=== PATIENT | male | born 1970 | race American Indian/Alaskan Native ===

== ENCOUNTER 2016-06-15 11:07 | Emergency (ER) | payer MEDICAID ==
--- NOTE | 2016-06-15 13:03 | Emergency Department Report ---
ED Dysuria HPI - HPI Chief Complaint: Urogenital-Male Stated Complaint: PAINFUL URINATION Time Seen by Provider: 06/15/16 12:58 Duration: 5 Days Location of Discomfort: Urethra (dysuria) Severity: Mild Symptoms: Dysuria: Yes, Frequency: Yes, Suprapubic Pain: No, Flank Pain: No, Fever: No, Hematuria: No, Abdominal Pain: No, Previous UTI's: No Other History: Pt reports dysuria, frequency, hesitancy x 5 days. No fevers or vomiting. No abdominal pain. ED Review of Systems ROS: Stated complaint: PAINFUL URINATION Other details as noted in HPI Comment: All other systems reviewed and negative Constitutional: denies: chills, fever Eyes: denies: eye pain, eye discharge, vision change ENT: denies: ear pain, throat pain Respiratory: denies: cough, shortness of breath, wheezing Cardiovascular: denies: chest pain, palpitations Endocrine: no symptoms reported Gastrointestinal: denies: abdominal pain, nausea, diarrhea Genitourinary: dysuria. denies: urgency, testicular pain Musculoskeletal: denies: back pain, joint swelling, arthralgia Skin: denies: rash, lesions Neurological: denies: headache, weakness, paresthesias Psychiatric: denies: anxiety, depression Hematological/Lymphatic: denies: easy bleeding, easy bruising ED Past Medical Hx - Past Medical History Hx Hypertension: Yes - Surgical History Past Surgical History?: No - Social History Smoking Status: Current Every Day Smoker Substance Use Type: Marijuana - Medications Home Medications: Home Medications Medication Instructions Recorded Confirmed Last Taken Type Ciprofloxacin HCl [Ciprofloxacin 500 mg PO Q12HR #56 tablet 06/15/16 Unknown Rx TAB] Tamsulosin [Flomax] 0.4 mg PO QDAY #30 cap 06/15/16 Unknown Rx Dysuria Exam - Exam General: Vital signs noted. No distress. Alert and acting appropriately. Exam: Yes Moist Mucous Membranes, No CVA Tenderness, No Abdominal Tenderness, No Rigidity or Guarding Exam: heart RRR, lungs CTAB, abd SNTND. Tender, enlarged prostate on exam. ED Course Vital Signs 06/15/16 11:22 Temperature 97.9 F Pulse Rate 72 Respiratory 16 Rate Blood Pressure 145/98 O2 Sat by Pulse 100 Oximetry - Reevaluation(s) Reevaluation #1: 06/15/16 17:16 NAD, stable for d/c. ED Medical Decision Making - Medical Decision Making UA clear, prostate enlarged and tender. Will treat for prostatitis and have him follow up. - Differential Diagnosis uti, sti, prostatitis Critical care attestation.: If time is entered above; I have spent that time in minutes in the direct care of this critically ill patient, excluding procedure time. ED Disposition Clinical Impression: Prostatitis, acute Disposition: DISCHARGED TO HOME OR SELFCARE Is pt being admited?: No Condition: Good Instructions: Prostatitis (ED) Prescriptions: Ciprofloxacin HCl [Ciprofloxacin TAB] 500 mg PO Q12HR #56 tablet Tamsulosin [Flomax] 0.4 mg PO QDAY #30 cap Referrals: CHRISSY MARTINEZ MD [Staff Physician] - 3-5 Days Time of Disposition: 17:18
[2016-06-15 15:55] VITALS: BP 140/88
[2016-06-15 16:56] LABS: Bilirubin,Urine NEG (Negative); Blood,Urine NEG (Negative); Ketones,Urine NEG (Negative); Leukocyte Esterase,Urine NEG (Negative); Mucus,Urine FEW /HPF; Nitrite,Urine NEG (Negative); Protein,Urine <15 mg/dL mg/dL (Negative)
== END 2016-06-15 17:26 | disposition home or self-care (01) ==
LOC: ED 11:07
DX: N41.0 Acute prostatitis (principal); I10 Essential (primary) hypertension; F17.200 Nicotine dependence, unspecified, uncomplicated; F12.90 Cannabis use, unspecified, uncomplicated
CPT/HCPCS: 81001; 82962; 87591; 99283

== ENCOUNTER 2018-07-08 05:59 | Emergency (ER) | payer MEDICAID ==
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
[2018-07-08 10:52] VITALS: BP 116/76
== END 2018-07-08 10:51 | disposition home or self-care (01) ==
LOC: ED 05:59
DX: H11.32 Conjunctival hemorrhage, left eye (principal); I10 Essential (primary) hypertension
CPT/HCPCS: 93005; 93010; 99282

== ENCOUNTER 2020-06-23 17:32 | Emergency (ER) | payer MEDICAID ==
--- NOTE | 2020-06-23 17:48 | Emergency Department Report ---
Blank Doc - Documentation Documentation: This is a 49-year-old male that is a poor historian presents with hearing voices and stating "I just do not feel good" and "my brain is going crazy". Patient otherwise denies any other complaints or symptoms. Denies any head trauma or injuries. Denies any suicidal homicidal ideation. 1- This initial assessment/diagnostic orders/clinical plan/ treatment(s) is/are subject to change based on pt's health status, clinical progression and re- assessment by fellow clinical providers in the ED. Further treatment and workup at subsequent clinical provers discretion. Patient/guardians urged not to elope from ED as their condition may be serious if not clinically assessed and m anaged. 2-labs 3-UA
[2020-06-23 18:29] LABS: Basophils % (Auto) 1.1 % (0.0-1.8); Eosinophils % (Auto) 1.1 % (0.0-4.3); Hematocrit 44.3 % (35.5-45.6); Hemoglobin 14.9 gm/dl (11.8-15.2); Lymphocytes # (Auto) 1.4 K/mm3 (1.2-5.4); Mean Corpuscular HGB Conc 34 % (32-34); Mean Corpuscular Volume 89 fl (84-94); Monocytes # (Auto) 0.3 K/mm3 (0.0-0.8); Monocytes % (Auto) 6.7 % (0.0-7.3); Platelet Count 124 K/mm3 (140-440); Red Cell Distribution Width 13.2 % (13.2-15.2)
[2020-06-23 18:33] LABS: Alanine Aminotransferase 23 units/L (7-56); BUN/Creatinine Ratio 7; Blood Urea Nitrogen 6 mg/dL (9-20); Calcium 8.4 mg/dL (8.4-10.2); Hemolysis Index 13
--- NOTE | 2020-06-23 18:41 | Emergency Department Report ---
<LUZ SRINIVASAN - Last Filed: 06/23/20 20:41> ED Psych HPI - General Chief Complaint: Psych Stated Complaint: DONT FEEL GOOD Time Seen by Provider: 06/23/20 17:46 - Related Data Previous Rx's Medication Instructions Recorded Last Taken Type Ciprofloxacin HCl [Ciprofloxacin 500 mg PO Q12HR #56 tablet 06/15/16 Unknown Rx TAB] Tamsulosin [Flomax] 0.4 mg PO QDAY #30 cap 06/15/16 Unknown Rx HYDROcodone/ACETAMINOPHEN [[place] 1 each PO Q6HR PRN #12 tablet 02/08/18 Unknown Rx 5-325 Tablet] Ibuprofen [Motrin] 800 mg PO Q8HR PRN #30 tablet 02/08/18 Unknown Rx Allergies Allergy/AdvReac Type Severity Reaction Status Date / Time No Known Allergies Allergy Unverified 06/15/16 11:27 ED Past Medical Hx - Medications Home Medications: Home Medications Medication Instructions Recorded Confirmed Last Taken Type Ciprofloxacin HCl [Ciprofloxacin 500 mg PO Q12HR #56 tablet 06/15/16 Unknown Rx TAB] Tamsulosin [Flomax] 0.4 mg PO QDAY #30 cap 06/15/16 Unknown Rx HYDROcodone/ACETAMINOPHEN [[place] 1 each PO Q6HR PRN #12 tablet 02/08/18 Unknown Rx 5-325 Tablet] Ibuprofen [Motrin] 800 mg PO Q8HR PRN #30 tablet 02/08/18 Unknown Rx ED Medical Decision Making - Lab Data Result diagrams: 06/23/20 18:05 06/23/20 18:05 - Medical Decision Making After reviewing mental health business process analyst note and evaluating patient I agree that patient requires involuntary hold at 1013 he meets inpatient criteria for acute psychosis. I have reviewed labs obtained, patient is medically clear for psychiatric care. ED Disposition Clinical Impression: Anxiety, Auditory hallucinations, Acute psychosis Disposition: DC/TX-70 ANOTHER TYPE HLTHCARE Is pt being admited?: No Does the pt Need Aspirin: No Condition: Stable Referrals: PRIMARY CARE, [Primary Care Provider] - 3-5 Days <LONNY JUAN - Last Filed: 06/26/20 06:56> ED Psych HPI - General Source: patient Mode of arrival: Ambulatory - History of Present Illness Initial Comments: 49-year-old male, history of schizophrenia, presents to ED for auditory hallucinations and anxiety. Patient states voices are saying things such as "what do you have to live for?" Patient denies any suicidal or homicidal ideations. Patient reports feeling anxious as well. He reports alcohol and marijuana use. States he has been off of his psych meds. Patient states he has "a lot going on," but does not elaborate. Complaint: other -: unknown Associated Psychiatric Symptoms: racing thoughts, auditory hallucinations History of same: Yes Quality: constant Improves With: none Worsens With: none Context: significant life stressor Associated Symptoms: denies: nausea, vomiting ED Review of Systems ROS: Stated complaint: DONT FEEL GOOD Other details as noted in HPI Comment: All other systems reviewed and negative Constitutional: denies: fever Gastrointestinal: constipation. denies: abdominal pain, nausea, vomiting Psychiatric: anxiety, auditory hallucinations. denies: visual hallucinations, homicidal thoughts, suicidal thoughts ED Past Medical Hx - Past Medical History Previous Medical History?: Yes Hx Hypertension: Yes - Surgical History Past Surgical History?: Yes Additional Surgical History: RIGHT ARM 4 YEARS AGO - Social History Smoking Status: Current Every Day Smoker Substance Use Type: Alcohol ED Physical Exam - General Limitations: No Limitations General appearance: alert, in no apparent distress - Head Head exam: Present: atraumatic, normocephalic - Eye Eye exam: Present: normal appearance, EOMI - ENT ENT exam: Present: mucous membranes moist - Neck Neck exam: Present: normal inspection - Respiratory Respiratory exam: Present: normal lung sounds bilaterally. Absent: respiratory distress - Cardiovascular Cardiovascular Exam: Present: regular rate, normal rhythm - GI/Abdominal GI/Abdominal exam: Present: soft. Absent: distended, tenderness - Extremities Exam Extremities exam: Present: normal inspection - Neurological Exam Neurological exam: Present: alert, oriented X3 - Psychiatric Psychiatric exam: Absent: flat affect, homicidal ideation, suicidal ideation - Skin Skin exam: Present: warm, dry, intact, normal color ED Course Vital Signs 06/23/20 06/23/20 06/23/20 17:43 19:12 21:30 Temperature 98.1 F 97.7 F Pulse Rate 78 60 51 L Respiratory 16 18 Rate Blood Pressure 138/79 Blood Pressure 117/79 124/79 [Left] O2 Sat by Pulse 20 L 100 99 Oximetry 06/24/20 06/24/20 06/24/20 01:37 08:57 19:33 Temperature 97.5 F L 98 F Pulse Rate 54 L 60 Respiratory 18 18 18 Rate Blood Pressure Blood Pressure 110/48 137/80 [Left] O2 Sat by Pulse 98 100 97 Oximetry 06/24/20 20:18 Temperature 98.0 F Pulse Rate 58 L Respiratory 18 Rate Blood Pressure Blood Pressure 120/52 [Left] O2 Sat by Pulse 99 Oximetry ED Medical Decision Making - Lab Data Result diagrams: 06/23/20 18:05 06/23/20 18:05 - Medical Decision Making 49-year-old male, history of schizophrenia, presents to ED with auditory hallucinations and anxiety. Patient reports he has been off of his psychiatric medications. Labs are unremarkable. Vital signs are. Patient is medically clear for mental health assessment. Will dispo per psych. Critical care attestation.: If time is entered above; I have spent that time in minutes in the direct care of this critically ill patient, excluding procedure time. ED Disposition Is pt being admited?: No
[2020-06-23 19:56] LABS: Bilirubin,Urine NEG (Negative); Blood,Urine NEG (Negative); Color,Urine Yellow (Yellow); Mucus,Urine FEW /HPF; Protein,Urine <15 mg/dL mg/dL (Negative); WBC,Urine < 1.0 /HPF (0.0-6.0)
[2020-06-23 20:06] LABS: Amphetamine Screen,Urine Negative; Benzodiazepines Screen,Urine Negative; Cocaine Screen,Urine Negative; Methadone Screen,Urine Negative; Opiate Screen,Urine Negative
[2020-06-23 20:28] LABS: Cannabinoid Screen,Urine Positive
--- NOTE | 2020-06-24 08:40 | Consultation ---
History of Present Illness - Reason for Consult Consult date: 06/24/20 Reason for consult: psychosis - History of Present Psychiatric Illness Per ED Note: "49-year-old male, history of schizophrenia, presents to ED for auditory hallucinations and anxiety. Patient states voices are saying things such as "what do you have to live for?" Patient denies any suicidal or homicidal ideations. Patient reports feeling anxious as well. He reports alcohol and marijuana use. States he has been off of his psych meds. Patient states he has "a lot going on," but does not elaborate." During my interview with 49y/o Latoya Arciniega he is lying down in bed. The patient has flight of ideas and is nonsensical. He's difficult to follow. He says he was brought to the ER "by everybody." He says he's been hearing voices that are coming out of an ear piece. He says they are telling him all kinds of stuff like "fractions in my body, and to drive my jet." He says "I jumped out of a plant trying to kill myself." The patient says "they keep telling me to get the right contracts." When asked about suicidal thoughts or homicidal thoughts, the patient replied "I can't make that decision. 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 When asked about his medication the patient replies "I takes lots of medicines." Psychiatric History Unable to adequately diagnose Medical history: None reported Family psych history: None reported Social History Unable to adequately diagnoses MENTAL STATUS EXAMINATION General Appearance and Behavior: Age appropriate, good hygiene, wearing appropriate clothes, cooperative Cooperation: Guarded, uncooperative Psychomotor Behavior: Psychomotor normal Mood: alright Affect and affective range: restricted Thought Process: illogical, flight of ideas, nonsensical Thought Content: hallucinations Speech: Normal rate, volume and rhythm Suicidal Ideation: Unable to assess Homicidal Ideation: Unable to assess Hallucinations: Auditory Delusions: Yes Impulse Control: Impaired Insight and Judgment: Limited insight and judgment Memory: Normal Attention: Normal Orientation: Alert, oriented. Assessment and Plan (1) Schizophrenia Current Visit: Yes Status: Acute Treatment Plan Start Depakote DR 125mg po BID Start Risperidone 0.5mg po BID Start Trazodone 50mg po qhs Start Vistaril 25mg po BID Start Geodon 20mg IM q6h prn agitation Sitter: defer to primary Medical: per primary Disposition: Recommend acute inpatient treatment Will follow. Case staffed with Dr. Fox. Medications and Allergies Allergies Allergy/AdvReac Type Severity Reaction Status Date / Time No Known Allergies Allergy Unverified 06/15/16 11:27 Home Medications Medication Instructions Recorded Confirmed Last Taken Type Ciprofloxacin HCl [Ciprofloxacin 500 mg PO Q12HR #56 tablet 06/15/16 Unknown Rx TAB] Tamsulosin [Flomax] 0.4 mg PO QDAY #30 cap 06/15/16 Unknown Rx HYDROcodone/ACETAMINOPHEN [[place] 1 each PO Q6HR PRN #12 tablet 02/08/18 Unknown Rx 5-325 Tablet] Ibuprofen [Motrin] 800 mg PO Q8HR PRN #30 tablet 02/08/18 Unknown Rx Mental Status Exam - Vital signs Last Vital Signs Temp 97.5 F L 06/24/20 01:37 Pulse 54 L 06/24/20 01:37 Resp 18 06/24/20 01:37 BP 110/48 06/24/20 01:37 Pulse Ox 98 06/24/20 01:37 Results Result Diagrams: 06/23/20 18:05 06/23/20 18:05 Abnormal lab results 06/23/20 06/23/20 06/23/20 Range/Units 18:05 18:05 18:05 WBC 3.8 L (4.5-11.0) K/mm3 Plt Count 124 L (140-440) K/mm3 Lymph % (Auto) 38.0 H (13.4-35.0) % Carbon Dioxide 31 H (22-30) mmol/L BUN 6 L (9-20) mg/dL Salicylates < 0.3 L (2.8-20.0) mg/dL Acetaminophen (10.0-30.0) ug/mL 06/23/20 Range/Units 18:05 WBC (4.5-11.0) K/mm3 Plt Count (140-440) K/mm3 Lymph % (Auto) (13.4-35.0) % Carbon Dioxide (22-30) mmol/L BUN (9-20) mg/dL Salicylates (2.8-20.0) mg/dL Acetaminophen 5.0 L (10.0-30.0) ug/mL All other labs normal.
[2020-06-24] MEDS ORDERED: ZIPRASIDONE MESYLATE 20 MG VIAL IM PRN (09:30)
[2020-06-24] MEDS: risperiDONE 0.25 MG TAB PO SCH ×2 (10:59→22:15)
[2020-06-24] MEDS: DIVALPROEX DR 125 MG TAB PO SCH ×2 (10:59→22:14)
[2020-06-24] MEDS: hydrOXYzine PAMOATE 25 MG CAP PO SCH ×2 (10:59→22:15)
[2020-06-24 20:19] VITALS: BP 120/52
[2020-06-24] MEDS ORDERED: traZODone 50 MG TAB PO SCH (22:00)
[2020-06-24] MEDS ORDERED: HALOPERIDOL LACTATE 5 MG/1 ML INJ IM PRN (22:34)
[2020-06-24] MEDS ORDERED: diphenhydrAMINE 50 MG/ML VIAL IM PRN (22:34)
== END 2020-06-24 23:43 | disposition other institution (70) ==
LOC: ED 17:32
DX: F23 Brief psychotic disorder (principal); F25.9 Schizoaffective disorder, unspecified; F41.9 Anxiety disorder, unspecified; I10 Essential (primary) hypertension; F17.200 Nicotine dependence, unspecified, uncomplicated; Z20.822 Contact with and (suspected) exposure to COVID-19; Z79.899 Other long term (current) drug therapy; Z98.890 Other specified postprocedural states
CPT/HCPCS: 36415; 80053; 80307; 81001; 85025; 96372; 99285; J1200; J1630; Q0177; U0003; 80320; G0480